=== PATIENT | female | born 1950 | race Caucasian/White ===

== ENCOUNTER 2023-06-09 12:22 | Emergency (ER) | payer OTHER ==
[~2023-06-09 12:22] MED LIST: Iopamidol 370 76% 100 ML VIAL ONE
[2023-06-09 13:51] LABS: #Basophils 0.1 thou/uL (0.0-0.2); #Eosinphils 0.6 thou/uL (0.0-0.7); #Lymphocytes 3.1 thou/uL (1.20-3.40); #Monocytes 0.4 thou/uL (0.11-0.59); %Basophils 1.9 % (0.0-1.0); %Eosinophils 8.2 % (0.0-10.0); %Lymphocytes 42.3 % (21.0-51.0); %Monocytes 5.7 % (0.0-10.0); %Neutrophils 41.8 % (42.0-75.0); Hematocrit 37.1 % (36.0-47.0); Mean Corpuscular HGB CONC 32.2 g/dL (32.0-36.0); Mean Corpuscular Hemoglobin 29.7 pg (27.0-31.0); Mean Corpuscular Volume 92.3 fl (78.0-98.0); Mean Platelet Volume 7.7 fL (7.4-10.4); Platelet Count 248 10x3/uL (130-400); Red Blood Cell (RBC) Count 4.02 mill/uL (4.20-5.40); White Blood Cell (WBC) Count 7.2 10x3/uL (4.8-10.8)
[2023-06-09 13:52] LABS: Bilirubin Negative (Negative); Blood, Urine Negative (Negative); Clarity Clear (Clear); Glucose, Urine (Dipstick) Negative (Negative); Ketone, Urine Negative (Negative); Leukocyte Negative (Negative); Nitrite Negative (Negative); Protein, Urine (Dipstick) Negative (Neg-Trace); Urobilinogen 0.2 mg/dL (Less than 2)
[2023-06-09 13:54] LABS: CAUTI Indications for Culture Alt mental st,lethar
[2023-06-09 13:57] LABS: Bacteria/HPF Rare-Few HPF (None Seen); RBC/HPF 0-3 HPF (0-3); Squamous Epithelial 0-3 HPF (0-3); WBC/HPF 0-3 HPF (0-3)
[2023-06-09 14:00] LABS: Urine Culture Reflex No No
[2023-06-09 14:09] LABS: ALT (SGPT) 14 U/L (8-55); AST (SGOT) 17 U/L (5-34); Albumin 4.4 g/dL (3.4-4.8); Alkaline Phosphatase 61 U/L (40-110); Anion Gap 13 mmol/L (10-20); BUN (Urea Nitrogen) 12 mg/dL (9.8-20.1); Bilirubin, Total 0.2 mg/dL (0.2-1.2); CK (CPK) 160 U/L (29-168); Calc. Creatinine Clearance 0 mL/min (70-130); Calcium 9.6 mg/dL (7.8-10.44); Carbon Dioxide 20 mmol/L (23-31); Chloride 114 mmol/L (98-107); Estimated GFR 64; Globulin 2.4 g/dL (2.4-3.5); Glucose 97 mg/dL (83-110); Potassium 3.6 mmol/L (3.5-5.1); Protein, Total 6.8 g/dL (5.8-8.1); Sodium 143 mmol/L (136-145)
[2023-06-09] MEDS ORDERED: Aspirin 325 MG TAB ONE (18:42)
[2023-06-09] MEDS ORDERED: Lisinopril 10 MG TAB ONE (18:42)
== END 2023-06-09 19:25 | disposition short-term general hospital (02) ==
LOC: MADERS 12:22
DX: R27.0 Ataxia, unspecified (principal); I10 Essential (primary) hypertension
CPT/HCPCS: 70450; 70496; 70498; 80053; 81001; 82550; 84443; 85025; 93005; Q9967